=== PATIENT | male | born 1970 | race Caucasian/White ===

== ENCOUNTER 2019-08-14 19:05 | Emergency (ER) | payer BC ==
--- NOTE | 2019-08-14 19:19 | PDOC ---
Rapid Medical Evaluation Medical Evaluation: I have performed a brief in-person evaluation of this patient. The patient presents with a chief complaint of: c/o redness and warmth of LLE; also recently traveled; sent by PCP to r/o DVT; has had cellulitis in the past Pertinent physical exam findings: +warmth and redness of LLE, +swelling of LLE, no calf pain I have ordered the following: LLE US The patient will proceed to the ED for further evaluation. 08/14/19 19:17
[2019-08-14 19:20] VITALS: BP 162/99; PULSE 82; TEMP 98; BMI 36.9
--- NOTE | 2019-08-14 22:49 | PDOC ---
History of Present Illness - General Chief Complaint: Redness To Affected Area Stated Complaint: SENT BY PCP Time Seen by Provider: 08/14/19 19:17 History Source: Patient - History of Present Illness Initial Comments: 08/14/19 22:58 49-year-old male sent by Dr. caldwell for evaluation of bilateral lower extremity edema. Patient reports that he traveled 5 hours from [place] to [place] this morning. Denies shortness of breath, nausea, vomiting, pleuritic pain, chest pain, fever/chills Past History - Past Medical History Allergies/Adverse Reactions: Allergies Allergy/AdvReac Type Severity Reaction Status Date / Time Penicillins Allergy Verified 08/14/19 19:20 Home Medications: Ambulatory Orders Sulfamethoxazole/Trimethoprim [Bactrim Ds -] 1 tab PO BID #14 tablet 08/14/19 COPD: No HTN: Yes - Psycho Social/Smoking Cessation Hx Smoking History: Never smoked *Physical Exam - Vital Signs Last Vital Signs Temp Pulse Resp BP Pulse Ox 98.0 F 82 18 162/99 97 08/14/19 19:17 08/14/19 19:17 08/14/19 19:17 08/14/19 19:17 08/14/19 19:17 - Physical Exam General Appearance: Yes: Appropriately Dressed Respiratory/Chest: positive: Lungs Clear, Normal Breath Sounds Integumentary: positive: Erythema (warm to touch, + 1 pitting edema) Neurologic: positive: Fully Oriented, Alert ED Progress Note - Progress Note Progress Note: 08/15/19 06:07 A: cellulitis vs dependent edema P: US: negative for DVT will empirically cover for early cellulitis. patient is to close PCP follow up . Discharge - Discharge Information Problems reviewed: Yes Clinical Impression/Diagnosis: Cellulitis and abscess of left leg Disposition: HOME - Additional Discharge Information Prescriptions: Sulfamethoxazole/Trimethoprim [Bactrim Ds -] 1 tab PO BID #14 tablet - Follow up/Referral Referrals: Marc Caldwell [Primary Care Provider] - - Patient Discharge Instructions Patient Printed Discharge Instructions: Cellulitis Additional Instructions: Elevate your legs above the level of your heart. Take Bactrim as prescribed. Follow-up with Dr. caldwell in 2 days for wound check. Return to the emergency room for any worsening symptoms - Post Discharge Activity
== END 2019-08-14 23:09 | disposition home or self-care (01) ==
LOC: JERFT 19:05
DX: L03.116 Cellulitis of left lower limb (principal); I10 Essential (primary) hypertension; Z88.0 Allergy status to penicillin
CPT/HCPCS: 93970-TC; 99284-25